=== PATIENT | female | born 1975 | race American Indian/Alaskan Native ===

== ENCOUNTER 2018-04-09 11:23 | Emergency (ER) | payer OTHER ==
[2018-04-09 11:29] VITALS: BMI 37.5
[2018-04-09 11:35] VITALS: RESP 18; TEMP 98.9; O2SAT 97
[2018-04-09] MEDS ORDERED: Sodium Chloride 0.9% 1,000 ML IV STA (11:42)
--- NOTE | 2018-04-09 11:46 | ED PDOC ---
Arrival/HPI - General Chief Complaint: Female Genitourinary Time Seen by Provider: 04/09/18 11:42 Historian: Patient - History of Present Illness Narrative History of Present Illness (Text): 04/09/18 11:43 42yo morbidly obese female with no significant past medical history who present with complaint of itchy vaginal rash x months. Also report polyuria/dipsia for months. states she saw her [facility] BALER for her symptoms and was told she have yeast infection and urine infection. States she was advised to follow up with a Urologist, but she never did. She also states that she was given a cream for a yeast infection, but it didn't he;p. She otherwise denies fever, chills, abdominal pain, chest pain, SOB, hematuria, dysuria, back pain, any other complaint. Past Medical History - Provider Review Nursing Documentation Reviewed: Yes - Infectious Disease Hx of Infectious Diseases: None - Reproductive Menopause: Yes - Psychiatric Hx Substance Use: No Family/Social History - Physician Review Nursing Documentation Reviewed: Yes Family/Social History: Unknown Family HX Smoking Status: Never Smoked Hx Alcohol Use: No Hx Substance Use: No Allergies/Home Meds Allergies/Adverse Reactions: Allergies No Known Allergies Allergy (Verified 04/09/18 11:29) Review of Systems - Physician Review All systems were reviewed & negative as marked: Yes - Review of Systems Constitutional: Normal Eyes: Normal ENT: Normal Respiratory: Normal Cardiovascular: Normal Gastrointestinal: Normal Genitourinary Female: Other (Vaginal rash) Musculoskeletal: Normal Skin: Normal Neurological: Normal Endocrine: Polyuria, Polydipsia Hemo/Lymphatic: Normal Psychiatric: Normal Physical Exam Vital Signs Reviewed: Yes Vital Signs Temp Pulse Resp BP Pulse Ox 04/09/18 11:24 98.9 F 82 18 153/89 H 97 Temperature: Afebrile Blood Pressure: Normal Pulse: Regular Respiratory Rate: Normal Appearance: Positive for: Well-Appearing, Non-Toxic, Comfortable Pain Distress: None Mental Status: Positive for: Alert and Oriented X 3 Finger Stick Blood Glucose: 311 - Systems Exam Head: Present: Atraumatic, Normocephalic Pupils: Present: PERRL Extroacular Muscles: Present: EOMI Conjunctiva: Present: Normal Mouth: Present: Moist Mucous Membranes Neck: Present: Normal Range of Motion Respiratory/Chest: Present: Clear to Auscultation, Good Air Exchange. No: Respiratory Distress, Accessory Muscle Use Cardiovascular: Present: Regular Rate and Rhythm, Normal S1, S2. No: Murmurs Abdomen: Present: Normal Bowel Sounds, Other (Soft). No: Tenderness, Distention, Peritoneal Signs, Rebound, Guarding, McBurney's Point Tender, Rovsing's Sign Present Genitourinary/Pelvic Exam: Present: Other (red patchy noted on the perineum area) Back: Present: Normal Inspection. No: CVA Tenderness Upper Extremity: Present: Normal Inspection. No: Cyanosis, Edema Lower Extremity: Present: Normal Inspection. No: Edema Neurological: Present: GCS=15, CN II-XII Intact, Speech Normal Skin: Present: Warm, Dry, Normal Color. No: Rashes Psychiatric: Present: Alert, Oriented x 3, Normal Insight, Normal Concentration Medical Decision Making ED Course and Treatment: 04/09/18 17:28 PT presented to emergency department or stated history. Pt's FS was elevated. She is not on any medication. She is a new onset Diabetic. Labs Urinalysis Lab was noted with elevated BS. she have UTI Her FS improved in emergency department with hydration. Result was DW the pt. She was DC home with Metformin, Econazole cream and keflex rx. Sales Project Manager phone was given and she was strongly advised to follow up with the clinic for Diabetic education and further outp evaluation. TRT emergency department for any new or worsening symptoms - Medication Orders Current Medication Orders: Sodium Chloride (Sodium Chloride 0.9%) 1,000 mls @ 999 mls/hr IV .Q1H1M STA Stop: 04/09/18 12:42 Disposition/Present on Arrival - Present on Arrival Any Indicators Present on Arrival: No History of DVT/PE: No History of Uncontrolled Diabetes: No Urinary Catheter: No History of Decub. Ulcer: No History Surgical Site Infection Following: None - Disposition Have Diagnosis and Disposition been Completed?: Yes Diagnosis: UTI (urinary tract infection), Skye infection of flexural skin, Diabetes mellitus, new onset Disposition: HOME/ ROUTINE Disposition Time: 13:20 Patient Plan: Discharge Condition: STABLE Discharge Instructions (ExitCare): Urinary Tract Infections in Adults, Type 2 Diabetes, Yeast Infection (DC) Additional Instructions: Follow up with the clinic Return to emergency department for any new or worsening symptoms Prescriptions: Cephalexin [cephalexin] 500 mg PO TID #21 cap RX: Econazole 1% [Spectazole Cr] 15 gm EXT BID #1 tube RX: metFORMIN [glucOPHAGE] 500 mg PO BID #20 tab Referrals: Elizabeth Traylor MD [Medical Doctor] - Follow up with primary [facility] [Outside] - Follow up with primary [facility] [place] - Follow up with primary Forms: [employer] (Telugu)
[2018-04-09 12:17] LABS: BASO # 0.01 K/mm3 (0.0-2.0); BASO % 0.2 % (0.0-3.0); EOS # 0.1 (0.0-0.7); EOS % 0.9 % (1.5-5.0); GRAN # 2.94 (1.4-6.5); GRAN % 53.5 % (50.0-68.0); HEMOGLOBIN 12.3 g/dL (12.0-16.0); LYMPH # 2.1 (1.2-3.4); LYMPH % 37.8 % (22.0-35.0); MEAN CELL VOLUME 72.6 fl (80.0-105.0); MEAN CORPUSCULAR HEMOGLOBIN 22.5 pg (25.0-35.0); MONO # 0.4 (0.1-0.6); MONO % 7.6 % (1.0-6.0); RBC 5.47 10^6/uL (3.5-6.1); RED CELL DISTRIBUTION WIDTH 13.4 % (11.5-14.5); WHITE BLOOD COUNT 5.5 10^3/uL (4.5-11.0)
[2018-04-09 12:21] LABS: INR 1.01; PARTIAL THROMBOPLASTIN TIME 28.1 Seconds (25.1-36.5); PROTHROMBIN TIME 11.6 SECONDS (9.4-12.5)
[2018-04-09 12:32] LABS: ALB/GLOB RATIO 1.1 (1.1-1.8); ALBUMIN 3.9 g/dL (3.0-4.8); ALT/SGPT 21 U/L (7-56); AST/SGOT 16 U/L (14-36); BLOOD UREA NITROGEN 7 mg/dL (7-21); CALCIUM 9.2 mg/dL (8.4-10.5); GFR NON-AFRICAN AMERICAN > 60
[2018-04-09 12:35] LABS: URINE BILIRUBIN NEGATIVE (NEGATIVE); URINE BLOOD TRACE-INTACT (NEGATIVE); URINE GLUCOSE (UA) 500 mg/dL (NEGATIVE); URINE LEUKOCYTE ESTERASE SMALL Leu/uL (NEGATIVE); URINE PROTEIN TRACE mg/dL (<30 mg/dL); URINE UROBILINOGEN 0.2 E.U./dL (<1 E.U./dL)
[2018-04-09 12:37] LABS: URINE APPEARANCE CLEAR (CLEAR); URINE COLOR YELLOW (YELLOW)
[2018-04-09 12:57] LABS: URINE BACTERIA SMALL (NEG)
[2018-04-09 13:38] VITALS: BP 145/71; PULSE 75
== END 2018-04-09 13:41 | disposition home or self-care (01) ==
LOC: ED 11:23
DX: N39.0 Urinary tract infection, site not specified (principal); E11.9 Type 2 diabetes mellitus without complications; B37.2 Candidiasis of skin and nail; E66.01 Morbid (severe) obesity due to excess calories
CPT/HCPCS: 80053; 81001; 82948; 85025; 85610; 85730; 87086; 96360; 99285; J7030